=== PATIENT | female | born 1990 | race Caucasian/White ===

== ENCOUNTER 2017-07-15 07:47 | Emergency (ER) | payer OTHER ==
[2017-07-15 08:08] VITALS: RESP 18; TEMP 98.6; O2SAT 99
[2017-07-15] MEDS ORDERED: LIDOCAINE HCL 2% GEL TOP ONE (08:12)
[2017-07-15] MEDS ORDERED: LIDOCAINE HCL 2% (VISCOUS) 20 ML SOL ONE (08:13)
[2017-07-15 08:27] VITALS: BP 100/64; PULSE 71
== END 2017-07-15 08:35 | disposition home or self-care (01) ==
LOC: ED 07:47
DX: K08.89 Other specified disorders of teeth and supporting structures (principal)
CPT/HCPCS: 99282

== ENCOUNTER 2018-02-08 22:45 | Emergency (ER) | payer SELFPAY ==
[2018-02-08 23:09] VITALS: BP 108/75; PULSE 66; RESP 16; TEMP 98.2; O2SAT 98
[2018-02-08] MEDS ORDERED: AMOXIL/CLAVULANATE 875/125 TAB PO ONE (23:27)
[2018-02-08] MEDS ORDERED: AMOXIL/CLAVULANATE 400/5 ML PDR PO ONE (23:45)
[2018-02-08] MEDS ORDERED: AMOXIL/CLAVULANATE 400/5 ML PDR ONE (23:47)
== END 2018-02-08 23:57 | disposition home or self-care (01) | DRG 159 ==
LOC: ED 22:45
DX: K08.89 Other specified disorders of teeth and supporting structures (principal)
CPT/HCPCS: 84703; 99282; A9270-GY

== ENCOUNTER 2018-04-09 20:06 | Emergency (ER) | payer OTHER ==
[2018-04-09] MEDS ORDERED: SODIUM CHLORIDE 0.9% 1000ML 1,000 ML IV ONE (20:31)
[2018-04-09 20:33] VITALS: BP 104/69; PULSE 75; RESP 17; TEMP 96.7; O2SAT 100
[2018-04-09 21:09] LABS: HEMATOCRIT 38 % (35-47); HEMOGLOBIN 12.9 gm/dl (12.0-15.5); MEAN CORPUSCULAR HEMOGLOBIN 30.4 pg (27.0-32.0); MEAN CORPUSCULAR HGB CONC 34.5 gm/dl (32.0-36.0); MEAN CORPUSCULAR VOLUME 88 fL (81-99)
[2018-04-09 21:11] LABS: ALBUMIN 3.8 gm/dl (3.4-5.0); BILIRUBIN,TOTAL 0.2 mg/dl (0.2-1.0); CALCIUM 8.5 mg/dl (8.5-10.1); CARBON DIOXIDE 31.8 mEq/L (21-32); CREATININE 0.76 mg/dl (0.60-1.00); TOTAL PROTEIN 7.2 gm/dl (6.4-8.2)
[2018-04-09 21:49] LABS: APPEARANCE,URINE CLEAR; COLOR,URINE YELLOW; PH,URINE 5.5
[2018-04-09 21:50] LABS: BACTERIA 1+ (< 1+); BILIRUBIN,URINE NEGATIVE (NEGATIVE); CRYSTALS NEGATIVE (0-3 AVE/HPF); EPITHELIAL CELLS 0-3 (SQUAMOUS); GLUCOSE, URINE (UA) NEGATIVE (NEGATIVE); KETONES,URINE TRACE (NEGATIVE); LEUKOCYTE ESTERASE ,URINE NEGATIVE (NEGATIVE); NITRATE,URINE NEGATIVE (NEGATIVE); OCCULT BLOOD,URINE 3+ (NEG-TRACE); RBC,URINE 0-2 (0-3AV/HPF); UROBILINOGEN,URINE 0.2 (0.2-1.0 EU); WBC,URINE 0-1 (0-5AV/HPF)
== END 2018-04-09 21:58 | disposition home or self-care (01) ==
LOC: ED 20:06
DX: N94.6 Dysmenorrhea, unspecified (principal); N92.1 Excessive and frequent menstruation with irregular cycle
CPT/HCPCS: 36415; 80053; 81001; 84703; 85025; 85027; 96365; 99283

== ENCOUNTER 2018-05-06 11:13 | Emergency (ER) | payer OTHER ==
[2018-05-06 11:38] VITALS: BP 118/75; PULSE 68; RESP 20; TEMP 96.2; O2SAT 98
== END 2018-05-06 12:05 | disposition home or self-care (01) ==
LOC: ED 11:13
DX: L23.9 Allergic contact dermatitis, unspecified cause (principal)
CPT/HCPCS: 99282

== ENCOUNTER 2018-07-17 18:52 | Emergency (ER) | payer OTHER ==
[2018-07-17 19:08] VITALS: BP 122/81; PULSE 69; RESP 20; TEMP 97; O2SAT 99
[2018-07-17] MEDS ORDERED: KETOROLAC TROMETHAMINE 30 MG/ML SOL IM ONE (19:21)
[2018-07-17] MEDS ORDERED: KETOROLAC TROMETHAMINE 30 MG/ML SOL ONE (19:28)
[2018-07-17] MEDS ORDERED: AUGMENTIN(FRIDGE) 400 MG/5 ML ONE (19:29)
[2018-07-17] MEDS ORDERED: AMOXIL/CLAVULANATE 875/125 TAB PO SCH (19:30)
== END 2018-07-17 19:35 | disposition home or self-care (01) ==
LOC: ED 18:52
DX: K08.89 Other specified disorders of teeth and supporting structures (principal)
CPT/HCPCS: 96372; 99282; J1885; A9270-GY